=== PATIENT | female | born 1980 | race Two or more races ===

== ENCOUNTER 2021-12-02 09:48 | Outpatient (CLI) | payer OTHER | END 2021-12-02 10:00 | disposition home or self-care (01) | LOC: RX STUDY 09:48 | DX: N94.89 Other specified conditions associated with female genital organs and menstrual cycle (principal) ==

== ENCOUNTER 2023-01-23 08:28 | Outpatient (CLI) | payer OTHER | END 2023-01-23 08:40 | disposition home or self-care (01) | LOC: SONOGRAMA 08:28 | PROVIDERS: ATTEND Obstetrics & Gynecology Reproductive Endocrinology | DX: N84.0 Polyp of corpus uteri (principal) ==